=== PATIENT | male | born 1960 | race Caucasian/White ===

== ENCOUNTER 2021-02-15 12:31 | Emergency (ER) | payer OTHER ==
[~2021-02-15] VITALS: Ht 172.7 cm; Wt 90.7 kg
[2021-02-15 13:14] VITALS: BP 130/76
--- NOTE | 2021-02-15 13:22 | NUR ---
PT W/C ASSISTED TO BED 11.
--- NOTE | 2021-02-15 13:30 | NUR ---
US BEDSIDE WITH PATIENT
--- NOTE | 2021-02-15 13:45 | NUR ---
61 Y MALE REFERRED FROM CLINIC FOR DVT RIGHT LOWER LEG. 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 SWELLING NOTED OF R FOOT ALONG WITH REDNESS. PEDIAL PULSES 2+ BILATERALLY. PT STATED HE IS UNABLE TO AMBULATE WITHOUT HIS WALKER SINCE HITTING HIS LEG. SLIGHT REDNESS AND BRUISING NOTED ON R LEG PMH: ASTHMA, HTN NKA
[2021-02-15] MEDS ORDERED: traMADol 50 MG TAB PO STA (14:35)
--- NOTE | 2021-02-15 14:51 | NUR ---
XRAY BEDSIDE WITH PATIENT
--- NOTE | 2021-02-15 15:43 | NUR ---
CONSENT FOR CT SIGNED AND OBTAINED BEDSIDE. CONSENT PLACED INTO PATIENT CHART
--- NOTE | 2021-02-15 16:10 | NUR ---
20 GUAGE IV ESTABLISHED IN L AC, BLOOD RETURN NOTED AND BLOOD WORK COLLECTED. LAB WORK HANDED TO SCALE CLERK EUGENIO
[2021-02-15 16:17] LABS: BASOPHILS % (AUTO) 0.3 % (0.0-2.0); EOSINOPHILS # (AUTO) 0.1 K/uL (0-0.4); EOSINOPHILS % (AUTO) 1.7 % (0.0-4.0); HEMATOCRIT 44.2 % (36-52); HEMOGLOBIN 15.2 g/dL (12.0-18.0); LYMPHOCYTES # (AUTO) 0.7 K/uL (2.0-11.5); LYMPHOCYTES % (AUTO) 10.7 % (20.5-51.1); MEAN CORPUSCULAR HEMOGLOBIN 33 pg (27-31); MEAN CORPUSCULAR HGB CONC 34 g/dL (33-37); MEAN CORPUSCULAR VOLUME 95.9 fL (80-94); MONOCYTES # (AUTO) 0.2 K/uL (0.8-1.0); MONOCYTES % (AUTO) 2.3 % (1.7-9.3); NEUTROPHILS # (AUTO) 5.9 K/uL (1.8-7.7); PLATELET COUNT (AUTO) 391 K/uL (140-450); RED CELL DISTRIBUTION WIDTH 12.9 % (11.6-13.7); WHITE BLOOD COUNT (AUTO) 6.9 K/uL (4.8-10.8)
--- NOTE | 2021-02-15 16:26 | NUR ---
Patient appears to be resting comfortably in bed with eyes open. Vital Signs within normal limits and charted. Respirations even and unlabored. Pt provided with warm blanket and lights turned off. Will continue to monitor pt status
[2021-02-15 16:35] LABS: ALBUMIN 3.1 g/dL (3.4-5.0); ANION GAP 12.3 (8-16); CARBON DIOXIDE 28.3 mmol/L (21-32); CREATININE 0.9 mg/dL (0.6-1.3); POTASSIUM 4.6 mmol/L (3.5-5.1); TOTAL BILIRUBIN 0.2 mg/dL (0.0-1.0)
--- NOTE | 2021-02-15 16:46 | NUR ---
bedside with patient
--- NOTE | 2021-02-15 17:03 | NUR ---
PT TAKEN TO CT VIA VIRAL
--- NOTE | 2021-02-15 17:22 | NUR ---
PT RETURNED TO BED [address] [facility] [facility]
[2021-02-15] MEDS ORDERED: CLIN150C1 PO ×2 (18:08→20:12)
[2021-02-15] MEDS ORDERED: TRAM50TA1 PO ×2 (18:09→20:12)
--- NOTE | 2021-02-15 18:18 | NUR ---
Patient discharged with v/s stable. Written and verbal after care instructions given and explained. Patient alert, oriented and verbalized understanding of instructions. Ambulatory with steady gait. All questions addressed prior to discharge. ID band removed. Patient advised to follow up with PMD. Rx of TRAMADOL AND CLINDAMYCIN given. Patient educated on indication of medication including possible reaction and side effects. Opportunity to ask questions provided and answered.
[2021-02-15 18:22] VITALS: BP 140/78
== END 2021-02-15 18:18 | disposition home or self-care (01) ==
LOC: MED 12:31
DX: M25.561 Pain in right knee (principal); L03.115 Cellulitis of right lower limb; I10 Essential (primary) hypertension; J45.909 Unspecified asthma, uncomplicated; Z88.6 Allergy status to analgesic agent; Z88.8 Allergy status to other drugs, medicaments and biological substances; W22.8XXA Striking against or struck by other objects, initial encounter; Y93.89 Activity, other specified; Y92.89 Other specified places as the place of occurrence of the external cause; Y99.8 Other external cause status
CPT/HCPCS: 36415; 73562; 73610; 73620; 73706; 80053; 85025; 93971; 99285; Q0092